=== PATIENT | male | born 1995 | race Asian ===

== ENCOUNTER 2018-12-19 18:06 | Emergency (ER) | payer OTHER ==
[~2018-12-19] VITALS: Ht 172.7 cm; Wt 85.7 kg
[2018-12-19 18:14] VITALS: BP 147/93; Ht 172.7 cm; Wt 85.7 kg
== END 2018-12-19 20:11 | disposition left against medical advice (07) ==
LOC: ED 18:06
DX: Z53.21 Procedure and treatment not carried out due to patient leaving prior to being seen by health care provider (principal)